=== PATIENT | male | born 1980 | race African-American/Black ===

== ENCOUNTER 2022-10-13 07:07 | Observation (INO) | payer OTHER ==
[2022-10-13 08:08] LABS: #Eosinphils 0.1 thou/uL (0.0-0.7); #Lymphocytes 1.7 thou/uL (1.20-3.40); #Monocytes 0.5 thou/uL (0.11-0.59); #Neutrophils 4.4 thou/uL (1.40-6.50); %Basophils 0.4 % (0.0-1.0); %Eosinophils 1.3 % (0.0-10.0); %Monocytes 7.9 % (0.0-10.0); %Neutrophils 65.4 % (42.0-75.0); Hemoglobin 13.4 g/dL (14.0-18.0); Mean Corpuscular HGB CONC 33.5 g/dL (32.0-36.0); Mean Corpuscular Hemoglobin 31.9 pg (27.0-31.0); Mean Corpuscular Volume 95.1 fl (78.0-98.0); Mean Platelet Volume 8.8 fL (7.4-10.4); Platelet Count 229 10x3/uL (130-400); RBC Distribution Width 12.3 % (11.5-14.5); Red Blood Cell (RBC) Count 4.22 mill/uL (4.70-6.10); White Blood Cell (WBC) Count 6.7 10x3/uL (4.8-10.8)
[2022-10-13 08:13] LABS: ALT (SGPT) 10 U/L (8-55); AST (SGOT) 15 U/L (5-34); Albumin 4.1 g/dL (3.5-5.0); Alkaline Phosphatase 44 U/L (40-110); Anion Gap 14 mmol/L (10-20); BUN (Urea Nitrogen) 12 mg/dL (8.9-20.6); Bilirubin, Total 0.6 mg/dL (0.2-1.2); Calc. Creatinine Clearance 0 mL/min (70-130); Calcium 9.4 mg/dL (7.8-10.44); Carbon Dioxide 23 mmol/L (22-29); Chloride 105 mmol/L (98-107); Estimated GFR 64; Glucose 151 mg/dL (70-105); Lipase 26 U/L (8-78); Potassium 3.7 mmol/L (3.5-5.1); Protein, Total 8.1 g/dL (6.0-8.3); Sodium 138 mmol/L (136-145)
[2022-10-13] MEDS ORDERED: Nitroglycerin 0.4 MG TAB (25 Tab Bottle) SL PRN (09:21)
[2022-10-13 11:22] LABS: Troponin I Less than 0.010 ng/mL (< 0.028)
[2022-10-13] MEDS: Sodium Chloride 0.9% 1,000 ML IV SCH ×3 (12:35→20:46)
[2022-10-13 16:22] LABS: Troponin I Less than 0.010 ng/mL (< 0.028)
[2022-10-13 16:25] VITALS: BMI 30.1
[2022-10-13] MEDS ORDERED: FLU VACC QS2022-23(6MOS UP)/PF 60 MCG/0.5 ML SYRINGE IM ONE (16:30)
[2022-10-14] MEDS: Sodium Chloride 0.9% 1,000 ML IV SCH ×2 (03:23→11:46)
[2022-10-14 05:17] LABS: Cardiac Risk 4.4 (Less than 4.5)
[2022-10-14 07:48] VITALS: BP 116/81; TEMP 97.5
[2022-10-14] MEDS ORDERED: Enoxaparin Sodium 40 MG/0.4 ML SYRINGE SC SCH (09:00)
[2022-10-14] MEDS ORDERED: ADENOSINE 60 MG/20 ML VIAL ONE (10:00)
[2022-10-14] MEDS ORDERED: Magnevist 469MG/ML 20 ML VIAL ONE (11:43)
== END 2022-10-14 12:01 | disposition home or self-care (01) ==
LOC: ERS 07:07 → ERHOLD 09:23 → 2SW 13:22
PROVIDERS: ADMIT Hospitalist; ATTEND Hospitalist
DX: R55 Syncope and collapse (principal); I10 Essential (primary) hypertension; I34.0 Nonrheumatic mitral (valve) insufficiency; Z87.891 Personal history of nicotine dependence; Z79.899 Other long term (current) drug therapy; Z20.822 Contact with and (suspected) exposure to COVID-19
CPT/HCPCS: 36415; 70450; 70553; 71045; 78452; 80053; 80061; 83690; 84146; 84484; 85025; 93005; 93017; 93306; 94760; 95816; 95819; 95957; A9500; A9579; G0378; J0153; J7050; U0003; U0005